=== PATIENT | female | born 1980 | race Caucasian/White ===

== ENCOUNTER 2017-07-05 06:44 | Day surgery (SDC) | payer BC, OTHER ==
[~2017-07-05 06:44] MED LIST: Lidocaine 1%/Sod Bicarbonate in NS 8.4% 1 ML Syringe PRN; Sodium Chloride 0.9% 10 ML Syringe FLUSH PRN
[2017-07-05] MEDS: Lactated Ringers 1,000 ML IV SCH ×2 (07:05→12:11)
[2017-07-05] MEDS ORDERED: Propofol 200 MG/20 ML SDV ONE ×3 (07:06→08:49)
[2017-07-05] MEDS ORDERED: Ondansetron 4 MG/2 ML SDV ONE (07:06)
[2017-07-05] MEDS ORDERED: Rocuronium 50 MG/5 ML Vial ONE (07:06)
[2017-07-05] MEDS ORDERED: Midazolam 1 MG/ML 2 ML SDV ONE (07:06)
[2017-07-05] MEDS ORDERED: fentaNYL 250 MCG/5 ML SDV ONE (07:06)
[2017-07-05] MEDS ORDERED: Lidocaine 1% 4 ML ONE (07:06)
[2017-07-05] MEDS ORDERED: Bupivacaine 0.5% 30 ML SDV ONE (07:17)
--- NOTE | 2017-07-05 07:29 | PCM.PREANE ---
Preanesthetic Assessment - Anesthesia/Transfusion/Family Hx Anesthesia History: Prior Anesthesia Reaction Type of Anesthesia Reaction: Other (see below) (nausea vomit) Family History of Anesthesia Reaction: No Transfusion History: No Prior Transfusion(s) - Review of Systems General: No Symptoms Pulmonary: No Symptoms Cardiovascular: No Symptoms Gastrointestinal: No Symptoms Neurological: No Symptoms Other: Reports: None - Physical Assessment NPO Status Date: 07/04/17 NPO Status Time: 23:00 O2 Sat by Pulse Oximetry: 100 Respiratory Rate: 16 Vital Signs: Last Vital Signs Temp 99.1 F 07/05/17 06:50 Pulse 69 07/05/17 06:50 Resp 16 07/05/17 06:50 BP 113/75 07/05/17 06:50 Pulse Ox 100 07/05/17 06:50 Height: 5 ft 2 in Weight: 59 kg ASA Class: 1 Mental Status: Alert & Oriented x3 Airway Class: Mallampati = 1 Dentition: Reports: Normal Dentition Thyro-Mental Finger Breadths: 3 Mouth Opening Finger Breadths: 3 ROM/Head Extension: Full Lungs: Clear to Auscultation, Normal Respiratory Effort Cardiovascular: Regular Rate, Regular Rhythm - Allergies Allergies/Adverse Reactions: Allergies Allergy/AdvReac Type Severity Reaction Status Date / Time No Known Allergies Allergy Verified 07/04/17 14:18 - Blood Blood Available: Yes - Acknowledgements Anesthesia Type Planned: General Anesthesia Pt an Appropriate Candidate for the Planned Anesthesia: Yes Alternatives and Risks of Anesthesia Discussed w Pt/Guardian: Yes Pt/Guardian Understands and Agrees with Anesthesia Plan: Yes PreAnesthesia Questionnaire HEENT History: Reports: Impaired Vision, Other (See Below) Other HEENT History: wears glasses Cardiovascular History: Reports: None Respiratory History: Reports: None Gastrointestinal History: Reports: None Genitourinary History: Reports: Other (See Below) Other Genitourinary History: HPV DIET CONSULTANT History: Reports: , Other (See Below) Other OB/BYN History: menorrhagia, pelvic pain Musculoskeletal History: Reports: None Neurological History: Reports: Headaches, Chronic, Migraines Psychiatric History: Reports: None Endocrine/Metabolic History: Reports: None Hematologic History: Reports: None Immunologic History: Reports: None Oncologic (Cancer) History: Reports: None Dermatologic History: Reports: None - Past Surgical History Head Surgeries/Procedures: Reports: None HEENT Surgical History: Reports: Oral Surgery Cardiovascular Surgical History: Reports: None Respiratory Surgical History: Reports: None GI Surgical History: Reports: None Female Surgical History: Reports: Section, Tubal Ligation, Other ( See Below) Other Female Surgeries/Procedures: colposcopy Endocrine Surgical History: Reports: None Neurological Surgical History: Reports: None Musculoskeletal Surgical History: Reports: None Oncologic Surgical History: Reports: None Dermatological Surgical History: Reports: None - SUBSTANCE USE Smoking Status *Q: Never Smoker Tobacco Use Within Last Twelve Months: No Second Hand Smoke Exposure: No Days Per Week of Alcohol Use: 0 Recreational Drug Use History: No - HOME MEDS Home Medications: Home Meds Melatonin 10 mg PO BEDTIME PRN 07/04/17 [History] SUMAtriptan Succinate [Imitrex] 100 mg PO ASDIRECTED PRN 07/04/17 [History] - CURRENT (IN HOUSE) MEDS Current Meds: Current Medications Lactated Ringer's (Ringers, Lactated) 1,000 mls @ 125 mls/hr IV ASDIRECTED JAKE Stop: 07/05/17 23:00 Lidocaine/Sodium Bicarbonate (Buffered Lidocaine 1% In Ns 8.4%) 0.25 ml .XX ONETIME PRN PRN Reason: Prior to IV Start Stop: 07/05/17 18:00 Sodium Chloride (Saline Flush) 10 ml FLUSH ASDIRECTED PRN PRN Reason: Keep Vein Open Stop: 07/05/17 18:00 Discontinued Medications Fentanyl (Sublimaze) Confirm Administered Dose 250 mcg .ROUTE .STK-MED ONE Stop: 07/05/17 07:07 Lidocaine HCl (Xylocaine-Mpf 1%) Confirm Administered Dose 4 mls @ as directed .ROUTE .STK-MED ONE Stop: 07/05/17 07:07 Midazolam HCl (Versed 1 Mg/Ml) Confirm Administered Dose 2 mg .ROUTE .STK-MED ONE Stop: 07/05/17 07:07 Ondansetron HCl (Zofran) Confirm Administered Dose 4 mg .ROUTE .STK-MED ONE Stop: 07/05/17 07:07 Propofol (Diprivan 20 Ml) Confirm Administered Dose 200 mg .ROUTE .STK-MED ONE Stop: 07/05/17 07:07 Rocuronium [place] (Zemuron) Confirm Administered Dose 50 mg .ROUTE .STK-MED ONE Stop: 07/05/17 07:07
[2017-07-05] MEDS ORDERED: Dexamethasone 4 MG/ML 5 ML MDV ONE (08:22)
[2017-07-05] MEDS ORDERED: ceFAZolin 1 GM Vial ONE (08:22)
[2017-07-05] MEDS ORDERED: Promethazine 6.25 MG in Sodium Chloride 0.9% 9 ML IV PRN (08:23)
[2017-07-05] MEDS ORDERED: fentaNYL 100 MCG/2 ML SDV IVPUSH PRN (08:23)
[2017-07-05] MEDS ORDERED: HYDROmorphone 0.5 MG/0.5 ML Syringe IVPUSH PRN (08:23)
[2017-07-05] MEDS ORDERED: Meperidine PF 50 MG/ML Syringe IVPUSH PRN (08:23)
[2017-07-05] MEDS ORDERED: Lactated Ringers 1,000 ML ONE (08:23)
[2017-07-05] MEDS ORDERED: Ondansetron 4 MG/2 ML SDV IVPUSH PRN ×2 (08:23→09:46)
[2017-07-05] MEDS ORDERED: HYDROmorphone 1 MG/ML Syringe ONE (08:30)
[2017-07-05] MEDS: Lidocaine 1% with EPINEPHrine 1:100,000 20 ML MDV ONE ×2 (08:40→08:56)
[2017-07-05] MEDS: Sodium Chloride 0.9% 50 ML SDV ONE ×2 (08:41→08:56)
[2017-07-05] MEDS ORDERED: fentaNYL 100 MCG/2 ML SDV ONE (09:11)
[2017-07-05] MEDS ORDERED: Neostigmine Methylsulfate 1 MG/ML 5 ML Syringe ONE (09:32)
--- NOTE | 2017-07-05 09:53 | PCM.OPNOTE ---
- General Post-Op/Procedure Note Date of Surgery/Procedure: 07/05/17 Operative Procedure(s): Laparoscopically assisted total vaginal hysterectomy with bilateral salpingectomy, lysis of pelvic adhesions Findings: Patient had omental adhesions to the anterior abdominal wall. The ovaries appeared functional, no significant adhesions in the anterior posterior cul-de- sac. Fallopian tubes appeared to be status post tubal ligation with only distal fallopian tubes and very proximal fallopian tube segments remaining. Upper abdomen appeared normal. Gallbladder appeared noninflamed. Pre Op Diagnosis: 1. Menorrhagia. 2. Pelvic pain Post-Op Diagnosis: Same with addition of pelvic adhesions Anesthesia Technique: General ET Tube, Local Other Anesthesia Type: 1. Marcaine 0.5%local 2. Lidocaine quarter percent with epinephrine-local Primary Surgeon: Carter Rojas Secondary Surgeon: Luis Antonio Carpio Anesthesia Provider: Leigha Daniels Automation Control Technician: Cuong Beyer Reason Automation Control Technician Was Necessary: Retraction, assistance, patient safety, quality of care Role of Automation Control Technician: Assistance, retraction Fluid Replacement, Intraop: 1,300 Output, Urine Amount: 100 EBL in mLs: 125 Drain/Tube Comments:: Indwelling bladder catheter during surgery onlyremoved at the end of case Complications: None Condition: Good Free Text/Narrative:: Surgery duration 101 minutes The patient was taken to the operating room placed in supine position on the operating table. She received 2 g of Ancef preoperatively for infection prophylaxis. She had signed consent previously. After adequate anesthesia patient was placed in a dorsal lithotomy position. It should be noted she had sequential compression stockings in place for DVT prophylaxis. A uterine manipulator was placed as was an latex free indwelling bladder catheter. This was done after adequate prepping and draping. The patient was placed in supine position and four laparoscopic port sites were developed. Marcaine 0.5% approximately 3-5 mL was injected at each site. Varies needle was placed and pneumoperitoneum was achieved with 3 L of CO2. Infraumbilical, suprapubic and 2 lateral port sites were developed. Under laparoscopic guidance the upper portion of the hysterectomy was performed. The right distal fallopian tube was elevated and crossclamped using the endoseal computerized cautery device. This small segment of fimbria was removed through the laparoscopic port. The round ligament was taken down to the broad ligament. At this time attention was turned to the left side and the left distal fallopian segment and the triple ligament were then taken down in a similar fashion. Broad ligament was taken down to the area of the uterine vasculature. Uterine vasculature was developed in the usual fashion using the cautery system. Both uterine arteries were identified and developed. Vaginal approach was then undertaken. The patient was placed in the dorsal lithotomy position and a weighted speculum was placed in the vagina. The cervix was injected with lidocaine quarter percent with epinephrine 20 mL total. A full circumference incision was made through the epithelium around the cervix. Posterior cul-de-sac was entered without problems. The left uterosacral ligament and then the right uterosacral were taken down using the Enseal vessel closure system. The cardinal ligament and what remained of the uterine vascular vessels and cervical branches of the vessels were managed with the Enseal vessel closure system on each side. Anterior cul-de-sac was then entered and the remaining portion of broad ligament on the right side and a small portion of broad ligament remaining on the left side were then developed in the usual fashion. Uterus was then removed. At this point the uterus was completely removed and sent as specimen. The vaginal cuff was then run with a locked running suture of 0 Monocryl from the 2 o'clock position to the 10 o'clock position. The vagina was closed with a running locked suture of 0 Monocryl. Hemostasis was confirmed this time and no bleeding was noted. Laparoscopy was then performed to ensure hemostasis. Pneumoperitoneum was reestablished and the laparoscope was placed. The pelvis was found to be a minimal amount of moistness. No active bleeding was noted. FloSeal however was placed in the area of the peritoneal edges to further reduce any potential possibility of bleeding. There was no evidence of any bowel adhesion to the vaginal cuff area noted. The sleeves were removed under direct visualization and the upper sleeve was removed after reversal of the pneumoperitoneum. Each of these sites were closed with a single interrupted suture of 3-0 Monocryl. They were further approximated with Dermabond skin glue. At this point the patient was awakened from general endotracheal anesthesia. The Ba catheter had been removed by this time. She is discharged from the operating room in good condition.
--- NOTE | 2017-07-05 10:02 | PCM.POSTAN ---
POST ANESTHESIA ASSESSMENT - MENTAL STATUS Mental Status: Alert, Oriented - VITAL SIGNS Pulse Rate: 71 SaO2: 100 Resp Rate: 12 Blood Pressure: 108/63 Temperature: 97.5 F - RESPIRATORY Respiratory Status: Respiratory Rate WNL, Airway Patent, O2 Saturation Stable, Supplemental Oxygen - CARDIOVASCULAR CV Status: Pulse Rate WNL, Blood Pressure Stable - GASTROINTESTINAL GI Status: No Symptoms - PAIN Pain Score: 0 - POST OP HYDRATION Hydration Status: Adequate & Stable
[2017-07-05] MEDS ORDERED: Ketorolac 30 MG/ML SDV IVPUSH PRN (10:08)
--- NOTE | 2017-07-05 10:58 | PCM48HPAN ---
Post Anesthesia Note - EVALUATION WITHIN 48HRS OF ANESTHETIC Vital Signs in Normal Range: Yes Patient Participated in Evaluation: Yes Respiratory Function Stable: Yes Airway Patent: Yes Cardiovascular Function Stable: Yes Hydration Status Stable: Yes Pain Control Satisfactory: Yes Nausea and Vomiting Control Satisfactory: Yes (denies pain and eating. pleased with care) Mental Status Recovered: Yes
[2017-07-05] MEDS ORDERED: Acetaminophen/oxyCODONE 325-5 MG Tab PO PRN (11:03)
== END 2017-07-05 13:00 | disposition home or self-care (01) ==
LOC: JD.SDS 06:44
PROVIDERS: ATTEND Obstetrics & Gynecology
DX: N87.9 Dysplasia of cervix uteri, unspecified (principal); N72 Inflammatory disease of cervix uteri; N80.0 Endometriosis of uterus; N73.6 Female pelvic peritoneal adhesions (postinfective); G43.909 Migraine, unspecified, not intractable, without status migrainosus; Z98.51 Tubal ligation status
CPT/HCPCS: 58552; A9270; J0690; J1100; J1170; J1885; J2250; J2405; J2710; J3010; J7120; 00840; J2001; J2704